=== PATIENT | female | born 1990 | race African-American/Black ===

== ENCOUNTER 2024-12-09 17:38 | Emergency (ER) | payer OTHER ==
[~2024-12-09] VITALS: Ht 149.9 cm; Wt 63.5 kg
[2024-12-09] MEDS ORDERED: PROCHLORPERAZINE EDISYLATE 10 MG/2 ML VIAL ONE (18:31)
[2024-12-09] MEDS: IV NS 0.9% 500 ML BAG IV ONE (18:37)
[2024-12-09] MEDS: PROCHLORPERAZINE EDISYLATE 10 MG/2 ML VIAL IVP ONE (18:38)
[2024-12-09 18:59] LABS: PREGNANCY TEST URINE QUAL NEGATIVE (NEGATIVE)
[2024-12-09] MEDS ORDERED: IBUP-1955 PO (19:02)
[2024-12-09] MEDS ORDERED: ACET-2030 PO (19:02)
[2024-12-09] MEDS ORDERED: KETOROLAC TROMETHAMINE INJ 30 MG/ML VIAL ONE (19:14)
[2024-12-09] MEDS ORDERED: diphenhydrAMINE HCL 50 MG/ML VIAL ONE (19:14)
[2024-12-09] MEDS: diphenhydrAMINE HCL 50 MG/ML VIAL IV ONE (19:19)
[2024-12-09] MEDS: KETOROLAC TROMETHAMINE INJ 30 MG/ML VIAL IV ONE (19:19)
[2024-12-09 19:36] VITALS: BP 132/89; TEMP 98.3; O2SAT 100
== END 2024-12-09 19:36 | disposition home or self-care (01) ==
LOC: ER 17:44
DX: R51.9 Headache, unspecified (principal)
CPT/HCPCS: 99284; 96374; 96375; 96361; 84703; J1885; J0780; J1200; J7040